=== PATIENT | female | born 2000 | race African-American/Black ===

== ENCOUNTER 2019-01-06 21:16 | Emergency (ER) | payer OTHER ==
[~2019-01-06] VITALS: Ht 172.7 cm; Wt 127.0 kg
[2019-01-06 22:02] VITALS: BP 130/72
[2019-01-06] MEDS ORDERED: LIDOCAINE 2%/EPI 1:100,000 20 ML VIAL. IJ ONE (23:00)
[2019-01-07] MEDS ORDERED: HYDR-2761 PO (01:19)
--- NOTE | 2019-01-07 01:23 | PHYS DOC ---
Past Medical History Past Medical History: No Pertinent History (JOSEPHINE HERNANDES APRN) Past Surgical History: No Surgical History (JOSEPHINE HERNANDES APRN) Alcohol Use: None Drug Use: None (JOSEPHINE HERNANDES APRN) Adult General Chief Complaint Chief Complaint: VAGINAL PROBLEM HPI HPI Patient is a 18 year old female who presents to the emergency department with complaints of pain and swelling in her left labia for the last 3 days. Patient currently rates the pain as 7 out of 10 on the pain scale, there are no alleviating factors. The pain increases when she ambulates her pressure is applied to the area. ROS Patient denies any fever, redness, warmth, drainage, dysuria, hematuria, irregular vaginal discharge, or irregular vaginal odor. She denies any drainage from the area. Patient states she has never had symptoms like this before. She denies any abdominal pain, nausea, vomiting, diarrhea, or rectal bleeding. All other ROS is neg unless otherwise noted in HPI. (JOSEPHINE HERNANDES APRN) Review of Systems Review of Systems See Above (JOSEPHINE HERNANDES APRN) Current Medications Current Medications Current Medications Medications (Trade) Dose Ordered Sig/Fran Start Time Stop Time Status Last Admin Dose Admin Lidocaine/ Epinephrine (LIDOCAINE 2%-EPI 1:100,000 multi-dose) 20 ml 1X ONCE 01/06/19 23:00 01/06/19 23:01 DC (JEANETTE HILLS DO) Allergies Allergies Allergies Coded Allergies Type Severity Reaction Last Updated Verified latex Allergy Unknown 01/06/19 Yes (JEANETTE HILLS DO) Physical Exam Physical Exam See Above Constitutional: Well developed, well nourished, no acute distress, non-toxic appearance, obese. [] HENT: Normocephalic, atraumatic, bilateral external ears normal, oropharynx moist, no oral exudates, nose normal. [] Eyes: PERRLA, EOMI, conjunctiva normal, no discharge. [] Neck: Normal range of motion, no tenderness, supple, no stridor. [] Cardiovascular:Heart rate regular rhythm, Lungs & Thorax: Respirations even and unlabored, no retractions, no respiratory distress Pelvic Exam: Maintenance Services Dispatcher present Dr. Hills Abdomen: Nontender, soft External Genitalia: Normal Skin; swollen left labia consistent with Bartholin's cyst, no erythema, cellulitis, or warmth Skin: Warm, dry, Extremities: No cyanosis, ROM intact, Neurologic: Alert and oriented X 3,no focal deficits noted. [] Psychologic: Affect normal, judgement normal, mood normal. [] (JOSEPHINE HERNANDES APRN) Physical Exam Constitutional: Well developed, well nourished, no acute distress, non-toxic appearance Abdomen: Soft, no tenderness Skin: Warm, dry, no erythema, no rash Back: Left labial Bartholin's cyst noted which is tender to palpation, Maintenance Services Dispatcher- [place] MARKETING STRATEGIST Extremities: No tenderness, ROM intact, no edema Neurologic: Alert and oriented X 3, no focal deficits noted Psychologic: Affect normal, judgement normal, mood normal (JEANETTE HILLS DO) Current Patient Data Vital Signs Vital Signs Date Time Temp Pulse Resp B/P (MAP) Pulse Ox O2 Delivery O2 Flow Rate FiO2 01/06/19 22:02 98.3 70 16 130/72 (91) 99 Room Air 98.3 (JEANETTE HILLS DO) Lab Values Laboratory Tests Test 01/06/19 22:02 POC Urine HCG, Qualitative Hcg negative (Negative) (JEANETTE HILLS DO) EKG EKG [] (JOSEPHINE HERNANDES APRN) Radiology/Procedures Radiology/Procedures [] (JOSEPHINE HERNANDES APRN) Course & Med Decision Making Course & Med Decision Making Pertinent Labs and Imaging studies reviewed. (See chart for details) dx: Bartholin's cyst of left labia I&D as documented in procedures. There was no surrounding erythema or warmth of the site. Pt was afebrile. Prescription written for norco 5/325 mg tablets. Pt was instructed to Follow up with Dr. Koo this week, return to the ER if sx worsen. Patient verbalized an understanding of home care, medications, follow-up, and return to ED instructions and was in agreement with the plan of care. [] (JOSEPHINE HERNANDES APRN) Dragon Disclaimer Dragon Disclaimer This electronic medical record was generated, in whole or in part, using a voice recognition dictation system. (JOSEPHINE HERNANDES APRN) Departure Departure Impression: Primary Impression: Cyst of left Bartholin's gland duct Disposition: HOME, SELF-CARE Condition: STABLE Referrals: NO PCP (PCP) CORBIN KOO MD Patient Instructions: Bartholin's Cyst and Abscess-Brief Additional Instructions: Warm sitz baths three times a day and as needed. Tylenol or ibuprofen as needed for pain. Follow up with Dr. Koo this week to have catheter removed. Return to ER if symptoms worsen. Scripts Hydrocodone Bit/Acetaminophen (HYDROCODONE-APAP 5-325 ) 1 Tab Tablet 0.5-1 TAB PO PRN Q6HRS PRN for PAIN for 2 Days, #6 TAB 0 Refills Prov: JOSEPHINE HERNANDES APRN 01/07/19 Incision and Drainage Incision and Drainage : Site: left labia Blade Size: 11 I & D Procedure: betadine prep Progress 4 ml of 2% lidocaine with epinephrine was injected into the left labia for anesthesia. A #11 blade scalpel was used to make a small incision into the mucosal surface. A large amount of bloody purulent fluid was expressed from the site. A Carbone catheter was then inserted into the I&D site, the balloon was inflated with 3 mls of normal saline. Patient tolerated procedure well, there was minimal blood loss. (JOSEPHINE HERNANDES APRN) Attending Signature Attending Signature I have personally interviewed and examined the patient. All charts, labs, and imaging studies were reviewed. I agree with the PA/MARKETING STRATEGIST's findings, exam, and plan. (JEANETTE HILLS DO) JOSEPHINE HERNANDES APRN Jan 07, 2019 01:23 JEANETTE HILLS DO Jan 13, 2019 13:42
== END 2019-01-07 01:41 | disposition home or self-care (01) ==
LOC: ER 21:16
DX: N90.7 Vulvar cyst (principal); N75.0 Cyst of Bartholin's gland; Z91.040 Latex allergy status
CPT/HCPCS: 56405; 81025; 99284